=== PATIENT | male | born 1975 | race Caucasian/White ===

== ENCOUNTER → 2017-01-06 | Outpatient (CLI) | payer OTHER ==
[~2017-01-06] MED LIST: ASPI-496 PO; ATOR20TA9 PO; CARV3.122 PO; CIPR500T87 PO; TYLENOL PO
== END | disposition home or self-care (01) ==
LOC: CFH 04:04
PROVIDERS: ATTEND Physician Assistant Medical
DX: Z01.810 Encounter for preprocedural cardiovascular examination (principal); I25.10 Atherosclerotic heart disease of native coronary artery without angina pectoris; I25.2 Old myocardial infarction; I10 Essential (primary) hypertension; E78.5 Hyperlipidemia, unspecified; I37.1 Nonrheumatic pulmonary valve insufficiency; I08.1 Rheumatic disorders of both mitral and tricuspid valves; Z95.5 Presence of coronary angioplasty implant and graft; Z85.47 Personal history of malignant neoplasm of testis
CPT/HCPCS: 93306

== ENCOUNTER → 2020-04-07 | Outpatient (CLI) | payer BC ==
[~2020-04-07] MED LIST changes: +ATOR20TA37 PO; -ATOR20TA9 PO
== END | disposition home or self-care (01) ==
LOC: CVU 08:41
PROVIDERS: ATTEND Nurse Practitioner Family
DX: I25.10 Atherosclerotic heart disease of native coronary artery without angina pectoris (principal)
CPT/HCPCS: 93306